=== PATIENT | male | born 2000 | race Two or more races ===

== ENCOUNTER 2021-09-25 22:09 | Emergency (ER) | payer SELFPAY ==
[~2021-09-25] VITALS: Ht 170.2 cm; Wt 72.7 kg
[2021-09-26 00:30] VITALS: BP 138/72
--- NOTE | 2021-09-26 00:44 | PHYS DOC ---
General Adult EDM: Chief Complaint: SUICDAL IDEATION HPI: HPI: Patient is a 20 year old male with past medical history of cutting disorder presents for evaluation. Patient states around 1500 hrs. he was frustrated and wanted to hurt himself. Patient used a knife and cut index into his chest. By cutting himself patient denied any attempt to kill himself. He denies any homicidal ideation. Patient states his tetanus is up-to-date. Review of Systems: Review of Systems: Review of systems: Constitutional symptoms- No fever, no chills. Eyes- No Discharge, No Visual Loss Respiratory symptoms- No shortness of breath, No wheezing, No Dyspnea on Exer tion Cardiovascular Systems; No chest pain, No Palpitations, No syncope Gastrointestinal symptoms: NO abdominal pain, no nausea, no vomiting or diarrhea. Genitourinary symptoms: No dysuria. Musculoskeletal symptoms: No back pain No extremity pain. NEUROLOGICAL Symptoms: No headache, no generalized weakness; No focal Weakness Skin: No rash. positive laceration Heart Score: C/O Chest Pain: N/A Risk Factors: Risk Factors: DM, Current or recent (<one month) smoker, HTN, HLP, family history of CAD, obesity. Risk Scores: Score 0 - 3: 2.5% MACE over next 6 weeks - Discharge Home Score 4 - 6: 20.3% MACE over next 6 weeks - Admit for Clinical Observation Score 7 - 10: 72.7% MACE over next 6 weeks - Early Invasive Strategies Physical Exam: PE: Constitutional: Well developed, well nourished, no acute distress, non-toxic appearance. [] HENT: Normocephalic, atraumatic, bilateral external ears normal, oropharynx moist, no oral exudates, nose normal. [] Eyes: PERRLA, EOMI, conjunctiva normal, no discharge. [] Neck: Normal range of motion, no tenderness, supple, no stridor. [] Cardiovascular:Heart rate regular rhythm, no murmur [] Lungs & Thorax: Bilateral breath sounds clear to auscultation [] Abdomen: Bowel sounds normal, soft, no tenderness, no masses, no pulsatile masses. [] Skin: Warm, dry, no erythema, no rash. large laceration chest - 2 woulds 8cm each Back: No tenderness, no CVA tenderness. [] Extremities: No tenderness, no cyanosis, no clubbing, ROM intact, no edema. [] Neurologic: Alert and oriented X 3, normal motor function, normal sensory function, no focal deficits noted. [] Psychologic: Affect normal, judgement normal, mood normal. [] EKG: EKG: [] Radiology/Procedures: Radiology/Procedures: [] Course & Med Decision Making: Course & Med Decision Making Pertinent Labs and Imaging studies reviewed. (See chart for details) [] Patient evaluated by psychiatric coupon manifest clerk. Patient denies any HI or SI. Patient stable for outpatient treatment. Wound was cleaned and examined. Patient does not want sutures. Patient will be discharged home in care of significant other- patient was provided with care plan. Dragon Disclaimer: [employer] Disclaimer: This electronic medical record was generated, in whole or in part, using a voice recognition dictation system. Departure Departure Impression: Primary Impression: Deliberate self-cutting Disposition: 01 HOME / SELF CARE / HOMELESS Referrals: UNKNOWN PCP NAME (PCP) Patient Instructions: Abrasions, Self-Destructive Behavior ELLY BAILEY DO Sep 26, 2021 00:44
[2021-09-26 00:56] LABS: BASO # 0.1 x10^3/uL (0.0-0.2); BASO % 1 % (0-3); EOS # 0.2 x10^3/uL (0.0-0.7); EOS % 2 % (0-3); HEMATOCRIT 44.2 % (39.0-53.0); HEMOGLOBIN 15.3 g/dL (13.0-17.5); LYMPH # 3.7 x10^3/uL (1.0-4.8); LYMPH % 38 % (24-48); MEAN CORPUSCULAR HEMOGLOBIN 31 pg (25-35); MEAN CORPUSCULAR HGB CONC 35 g/dL (31-37); MEAN CORPUSCULAR VOLUME 89 fL (79-100); MONO # 0.8 x10^3/uL (0.0-1.1); MONO % 8 % (0-9); NEUT # 5.1 x10^3/uL (1.8-7.7); NEUT % 52 % (31-73); PLATELET COUNT 198 x10^3/uL (140-400); RED BLOOD COUNT 4.96 x10^6/uL (4.30-5.70); RED CELL DISTRIBUTION WIDTH 12.7 % (11.5-14.5); WHITE BLOOD COUNT 9.8 x10^3/uL (4.0-11.0)
[2021-09-26 01:07] LABS: CALCIUM 8.3 mg/dL (8.5-10.1); GFR 93.4; POTASSIUM 3.8 mmol/L (3.5-5.1)
[2021-09-26 01:12] LABS: ALBUMIN 3.9 g/dL (3.4-5.0); TOTAL BILIRUBIN 0.3 mg/dL (0.2-1.0)
[2021-09-26 01:13] LABS: ACETAMIN < 2 mcg/ml (10-30); ETHANOL < 10 mg/dL (0-10); SALIC 3.3 mg/dL (2.8-20.0)
--- NOTE | 2021-09-26 15:42 | NUR ---
IP: Attempted to contact pt concerning covid results. Pt refused call per person who answered.
== END 2021-09-26 04:25 | disposition home or self-care (01) ==
LOC: ER 22:09
DX: S29.9XXA Unspecified injury of thorax, initial encounter (principal); Z20.822 Contact with and (suspected) exposure to COVID-19; X78.8XXA Intentional self-harm by other sharp object, initial encounter; Y93.89 Activity, other specified; Y92.89 Other specified places as the place of occurrence of the external cause; Y99.8 Other external cause status
CPT/HCPCS: 36415; 80053; 80329; 85025; 99283; G0480; U0003; U0005

== ENCOUNTER 2021-11-23 18:29 | Emergency (ER) | payer SELFPAY ==
[~2021-11-23] VITALS: Ht 170.2 cm; Wt 72.7 kg
--- NOTE | 2021-11-23 19:41 | PHYS DOC ---
Past Medical History Additional Past Medical Histor: CUTTING HIMSELF Past Surgical History: No Surgical History Smoking Status: Former Smoker Alcohol Use: None General Adult EDM: Chief Complaint: FACE PROBLEM HPI: HPI: Patient is a 20 year old male who presents with bruising of his face and nasal pain. 2 days ago, he became angry, as is usual for him, and he began hitting his face against a counter. He denies loss of consciousness. He denies any severe headache at present. He denies nausea or vomiting. Denies dizziness or vertigo. No epistaxis or rhinorrhea reported. He has a large bruise around his right eye, smaller bruise around his left eye, mild pain at his nasal bridge. He denies chest pain, cough, dyspnea. He denies sore throat, dental trauma, difficulty swallowing, voice changes. He is not taking anticoagulant med ications. He also intentionally cut himself on both arms with resultant superficial abrasions. He is unsure of tetanus status. He is here with his significant other who reports that he frequently has anger outbursts like this. He has not had any other outbursts or trauma since that time. He is supposed to go to [facility] for help with his mental illness, and they requested that he be medically cleared here before doing so. He denies SI or HI symptoms. Review of Systems: Review of Systems: Constitutional: Denies fever or chills. [] Eyes: Denies change in visual acuity. Periorbital ecchymoses bilaterally, right worse than left. No vision loss. No floaters. HENT: Denies nasal congestion or sore throat. No dental pain. Mild nasal pain. No epistaxis or rhinorrhea. Respiratory: Denies cough or shortness of breath. [] Cardiovascular: Denies chest pain or edema. [] GI: Denies abdominal pain, nausea, vomiting : Denies dysuria. [] Musculoskeletal: Denies back pain or joint pain. [] Integument: Denies rash. [] Neurologic: Denies headache, focal weakness or sensory changes. Denies dizziness, vertigo, syncope. Facial injury Psychiatric: Mood disturbance. Denies current HI or SI symptoms. Heart Score: C/O Chest Pain: No Risk Factors: Risk Factors: DM, Current or recent (<one month) smoker, HTN, HLP, family hi story of CAD, obesity. Risk Scores: Score 0 - 3: 2.5% MACE over next 6 weeks - Discharge Home Score 4 - 6: 20.3% MACE over next 6 weeks - Admit for Clinical Observation Score 7 - 10: 72.7% MACE over next 6 weeks - Early Invasive Strategies Physical Exam: PE: Constitutional: Well developed, well nourished, no acute distress, non-toxic appearance. [] HENT: No scalp or calvarial trauma noted. No hematoma of the scalp. There is a mild to moderate right periorbital ecchymosis. There is a smaller area of ecchymosis under the left eye, but does not encompass the entire periorbital area. Mild soft tissue swelling of the nasal bridge. Oropharynx is patent and clear, no dental trauma. Mucous membranes are moist. External ears are normal bilaterally, no otorrhea. TMs are clear bilaterally without hemotympanum. Nares are patent without rhinorrhea epistaxis. No midface trauma, no midface instability. No other areas of facial swelling or trauma noted. Eyes: PERRL, EOMI, no nystagmus. There is a subtle subconjunctival hemorrhage of the right lateral conjunctive a. No hyphema. Red reflex present bilaterally. Right-sided funduscopic exam is unremarkable. Neck: Normal range of motion, no tenderness, supple, no stridor. [] Cardiovascular:Heart rate regular rhythm Lungs & Thorax: Bilateral breath sounds clear to auscultation [] Skin: Warm, dry, no erythema, no rash. Ecchymosis of the right and left eye/periorbital regions. No open wounds. Back: No tenderness, no CVA tenderness. [] Extremities: No tenderness, no cyanosis, no clubbing, ROM intact, no edema. [] Neurologic: Alert and oriented X 3, normal motor function, normal sensory function, no focal deficits noted. Ambulatory with a steady gait. No ataxia. Psychologic: Affect normal, judgement normal, mood normal. He is calm and cooperative. EKG: EKG: [] Radiology/Procedures: Radiology/Procedures: IMAGING REPORT Signed PATIENT: MATEO HERRERA EACCOUNT: [id number] : 2000 LOCATION: ER AGE: 20 SEX: M EXAM STATUS: REG ER ORD. PHYSICIAN: JORDAN CAM DO REASON: facial injury PROCEDURE: CT HEAD AND MAXILLOFACIAL WO Exam: CT head and maxillofacial without contrast INDICATION: Facial injury TECHNIQUE: Sequential axial images through the head and face were obtained without the administration of IV contrast. Exposure: One or more of the following in the visualized dose reduction techniques were utilized for this examination: 1. Automated exposure control 2. Adjustment of the MA and/or KV according to patient size 3. Use of iterative of reconstructive technique Comparisons: None FINDINGS: Head: No focal parenchymal lesion or hemorrhage is identified. There is no midline shift or sulcal effacement. No acute vascular territory infarction is identified. Cloud-white distinction is preserved. The ventricular system is within normal limits without compression hydrocephalus. The basal cisterns are well maintained. Face: The visualized portions of the paranasal sinuses and mastoid air cells are well- pneumatized. No acute fractures. Globes and intraorbital contents are normal. IMPRESSION: 1. No acute intracranial abnormality. 2. No acute traumatic injury at the face. Electronically signed by: Xiomara Aquino MD (11/23/2021 10:07 PM) [facility] DICTATED and SIGNED BY: XIOMARA AQUINO MD DATE: 11/23/21 [id number] 0 Course & Med Decision Making: Course & Med Decision Making Pertinent Labs and Imaging studies reviewed. (See chart for details) The patient's tetanus is updated. He requested, for pain, so this is given. CT imaging is unremarkable. I discussed all of the findings, differential diagnosis and plan of care with the patient. I explained that his bruising may take several weeks to resolve. He is a nonfocal neurologic exam. His, cooperative, manifest evidence of psychosis or agitation at present. No evidence of obvious iritis, he has what appears to be an uncomplicated subconjunctival hemorrhage and periorbital ecchymoses. No facial fracture or intracranial hemorrhage noted. No indication further invasive exams, imaging or admission at this time based on current clinical presentation. Return precautions are given. Dragon Disclaimer: Dragon Disclaimer: This electronic medical record was generated, in whole or in part, using a voice recognition dictation system. Departure Departure Impression: Primary Impression: Periorbital contusion of right eye Additional Impressions: Subconjunctival hemorrhage of right eye Abrasion of arm, right Abrasion of arm, left Outbursts of anger Disposition: 01 HOME / SELF CARE / HOMELESS Condition: STABLE Referrals: UNKNOWN PCP NAME (PCP) Patient Instructions: Abrasions, Facial or Scalp Contusion, Subconjunctival Hemorrhage-Brief Additional Instructions: Return to the ER for severe headache, new injury or trauma, uncontrolled vomiting, severe dizziness, focal weakness or any other concerns. Your bruising may take several weeks to completely heal. You may use ice packs to help with pain or swelling. He may take [id number] Tylenol or ibuprofen as needed. Please follow-up with [facility] as well as with [facility] for further evaluation of your chronic mental health issues and for further medical management. JORDAN CAM DO Nov 23, 2021 19:41
[2021-11-23] MEDS ORDERED: ACETAMINOPHEN 500 MG TABLET PO ONE (20:00)
[2021-11-23] MEDS ORDERED: TETANUS AND DIPHTHERIA TOX/PF 0.5 ML DISP.SYRIN. VAX IM ONE (20:00)
--- NOTE | 2021-11-23 22:09 | RAD ---
Exam: CT head and maxillofacial without contrast INDICATION: Facial injury TECHNIQUE: Sequential axial images through the head and face were obtained without the administration of IV contrast. Exposure: One or more of the following in the visualized dose reduction techniques were utilized for this examination: 1. Automated exposure control 2. Adjustment of the MA and/or KV according to patient size 3. Use of iterative of reconstructive technique Comparisons: None FINDINGS: Head: No focal parenchymal lesion or hemorrhage is identified. There is no midline shift or sulcal effaceme nt. No acute vascular territory infarction is identified. Cloud-white distinction is preserved. The ventricular system is within normal limits without compression hydrocephalus. The basal cisterns are well maintained. Face: The visualized portions of the paranasal sinuses and mastoid air cells are well-pneumatized. No acute fractures. Globes and intraorbital contents are normal. IMPRESSION: 1. No acute intracranial abnormality. 2. No acute traumatic injury at the face. Electronically signed by: Alfie De La Cruz MD (11/23/2021 10:07 PM) [facility]
[2021-11-23 22:17] VITALS: BP 118/65
== END 2021-11-23 22:31 | disposition home or self-care (01) ==
LOC: ER 18:29
DX: S00.11XA Contusion of right eyelid and periocular area, initial encounter (principal); S40.812A Abrasion of left upper arm, initial encounter; S40.811A Abrasion of right upper arm, initial encounter; H11.31 Conjunctival hemorrhage, right eye; Z87.891 Personal history of nicotine dependence; W22.8XXA Striking against or struck by other objects, initial encounter; Y93.89 Activity, other specified; Y92.89 Other specified places as the place of occurrence of the external cause; Y99.8 Other external cause status
CPT/HCPCS: 70450; 70486; 90471; 90714; 99284-25